=== PATIENT | female | born 1995 | race American Indian/Alaskan Native ===

== ENCOUNTER 2017-07-29 11:02 | Outpatient (CLI) | payer MEDICAID ==
[2017-07-29] MEDS ORDERED: LACTATED RINGERS 1,000 ML IV ONE (11:05)
[2017-07-29 11:29] LABS: Urine Drugs of Abuse Note Disclamer
[2017-07-29 11:42] LABS: Bacteria,Urine 1+ /HPF (Negative)
[2017-07-29 11:47] LABS: Bilirubin,Urine NEG (Negative); Blood,Urine MOD (Negative); Ketones,Urine NEG (Negative); Leukocyte Esterase,Urine LG (Negative); Mucus,Urine FEW /HPF; Nitrite,Urine NEG (Negative); Protein,Urine <15 mg/dL mg/dL (Negative); Urobilinogen,Urine < 2.0 mg/dL (<2.0)
[2017-07-29 12:21] VITALS: BP 121/75
== END 2017-07-29 12:40 | disposition home or self-care (01) ==
LOC: TRG 11:02
PROVIDERS: ATTEND Obstetrics & Gynecology
DX: O47.03 False labor before 37 completed weeks of gestation, third trimester (principal); Z3A.32 32 weeks gestation of pregnancy
CPT/HCPCS: 59025; 80307; 81001; 96360; J7120

== ENCOUNTER 2017-09-21 10:14 | Inpatient (IN) | payer MEDICAID ==
--- NOTE | 2017-09-21 10:38 | History and Physical Report ---
History of Present Illness Date of examination: 09/21/17 Chief complaint: Contractions @ 40w3d History of present illness: EDC Confirmation: 09/18/2017 Past History : 1 Past Medical History: Negative Past Medical History Past Surgical History: Negative Past Surgical History Family History Summary: Other family member - Has No Family History of Uterine Cancer - Entered On: 06/07 Other family member - Has No Family History of Stomach Cancer - Entered On: 06/07 Other family member - Has No Family History of Small Bowel Cancer - Entered On: 06/07/2017 Other family member - Has No Family History of Pancreatic Cancer - Entered On: Other family member - Has No Family History of Ovarvian Cancer - Entered On: Other family member - Has No Family History of Kidney/Urinary Tract Cancer - Entered On: 06/07/2017 Other family member - Has No Family History of DVT/PE on OCP - Entered On: 2016 Other family member - Has No Family History of Colon Cancer - Entered On: 2016 Other family member - Has No Family History of Breast Cancer - Entered On: 2016 Other family member - Has No Family History of Brain Cancer - Entered On: 2016 Other family member - Has No Family History of Biliary Tract Cancer - Entered On : 06/07/2017 Social History: Reviewed history and no changes required: Patient is single Smoking History: Patient is a former smoker. 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 Infection History Hx of STD: chlamydia Personal hx. of genital herpes: no Partner hx. of genital herpes: no Varicella/Chicken Pox Status: Unknown TB Risk: no Genetic History Congenital Heart Defect: Mom: no Dad: no Karla Disease: Mom: no Dad: no Thalassemia Mom: no Dad: no Neural Tube Defect Mom: no Dad: no Down's Syndrome Mom: no Dad: no Jose Alberto-Sachs Mom: no Dad: no Sickle Cell Disease/Trait Mom: no Dad: no Hemophilia Mom: no Dad: no Muscular Dystrophy Mom: no Dad: no Cystic Fibrosis Mom: no Dad: no [place] Chorea Mom: no Dad: no Mental Retardation Mom: no Dad: no Fragile X Mom: no Dad: no Other Genetic/Chromosomal Disorder Mom: no Dad: no Child w/other defect Mom: no Dad: no Enviromental Exposures Enviromental Exposures Reviewed Xray Exposure: no Medication, drug, or alcohol use since LMP: yes Chemical/Other Exposure: no Exposure to Cat Liter: no Hx of Parvovirus (Fifth Disease): no Occupational Exposure to Children: none Comments: tylenol Active Medications (reviewed today): ONDANSETRON 4 MG ORAL TBDP (ONDANSETRON) 1 tab po 1hrs prior to medication then q12 hrs as needed PLUS 27-1 MG TABS ( VIT-FE FUMARATE-FA) 1 po qd TYLENOL PRN () Current Allergies (reviewed today): * PCN (Critical) Past History Past Medical History: other (see HPI) Past Surgical History: other (see HPI) Family/Genetic History: other (see HPI) - Obstetrical History Expected Date of Delivery: 09/18/17 Actual Gestation: 40 Week(s) 3 Day(s) : 1 Para: 0 Hx # Term Pregnancies: 0 Spontaneous Abortions: 0 Induced : 0 Number of Living Children: 0 Medications and Allergies Allergies Allergy/AdvReac Type Severity Reaction Status Date / Time Penicillins Allergy Hives Verified 07/29/17 11:04 Review of Systems All systems: negative - Physical Exam Breasts: Positive: normal Cardiovascular: Regular rate Lungs: Positive: Clear to auscultation, Normal air movement Abdomen: Positive: normal appearance, soft Genitourinary (Female): Positive: normal external genitalia, normal perenium Vulva: both: normal Vagina: Positive: normal moisture Uterus: Positive: normal size, normal contour Anus/Rectum: Positive: normal perianal skin Extremities: Positive: normal Deep Tendon Reflex Grade: Normal +2 - Obstetrical Uterine Contraction Monitor Mode: External Results Result Diagrams: 09/21/17 10:45 All other labs normal. Current OB Labs Blood Type: B (04/09/2017) Rh Type: positive (04/09/2017) Hgb: 12.1 (04/09/2017) Hct: 35.5 (04/09/2017) Platelets: 182 (04/09/2017) Rubella: immune (04/09/2017) Hep B Surface Antigen: negative (04/09/2017) Urine Culture: yeast (04/09/2017) Optional Labs Sickle Cell: negative (04/09/2017) Tests: (8) Result ([id number]) ! Result 1 [A] BETAGB *8 Beta hemolytic Streptococcus, group B 08/16/17: Tests: (1) Chlamydia/GC Amplification ([id number]) Order Note: Clinical Information: SRC:UR Chlamydia trachomatis, MICHEL Negative Negative *1 Neisseria gonorrhoeae, MICHEL Negative Negative *2 Tests: (2) RPR, Rfx Qn RPR/Confirm TP ([id number]) RPR Non Reactive Non Reactive *3 Tests: (3) Panel [id number] ([id number]) HIV Screen 4th Generation wRfx Non Reactive Non Reactive *4 Assessment and Plan 21y/o G1po @ 40+3, admitted for active labor, GBS +. Admission orders in EMR. - Patient Problems (1) GBS (group B Streptococcus carrier), +RV culture, currently Current Visit: Yes Status: Acute Plan to address problem: allergy to pcn, will treat with cleocin Q8h until delivery (2) Active labor at term Current Visit: Yes Status: Acute (3) 40 weeks gestation of Current Visit: Yes Status: Acute
[2017-09-21] MEDS ORDERED: PITOCin/NS 20 UNIT/1000ML DRIP 20 UNITS/1,000 ML BAG IV SCH ×3 (11:00→23:16)
[2017-09-21] MEDS: LACTATED RINGERS 1,000 ML IV SCH ×4 (11:17→22:07)
[2017-09-21] MEDS: CLEOCIN 900 MG/50 mL 900 MG/50 ML BAG IV SCH ×2 (11:18→18:37)
[2017-09-21] MEDS ORDERED: ZOFRAN IV PRN ×2 (11:30→23:16)
[2017-09-21] MEDS ORDERED: SUBLIMAZE IV PRN (11:30)
[2017-09-21] MEDS ORDERED: ePHEDrine SULFATE IV PRN (11:30)
[2017-09-21] MEDS ORDERED: MINERAL OIL PO PRN (12:00)
[2017-09-21] MEDS ORDERED: XYLOCAINE 2% INFILTRATI ONE (12:00)
[2017-09-21] MEDS ORDERED: BRETHINE SUB-Q PRN (12:00)
[2017-09-21 12:07] LABS: Hemoglobin 13.4 gm/dl (10.1-14.3); Mean Corpuscular HGB Conc 33 % (30-34); Mean Corpuscular Hemoglobin 27 pg (28-32); Mean Corpuscular Volume 82 fl (79-97); Platelet Count 166 K/mm3 (140-440); Red Cell Distribution Width 15.1 % (13.2-15.2); White Blood Count 16.5 K/mm3 (4.5-11.0)
[2017-09-21] MEDS ORDERED: fentaNYL-BUPIV 2 MCG/ML-0.125% 200 MCG/100 ML BAG EPIDURAL ONE (12:10)
[2017-09-21] MEDS ORDERED: NARCAN 2 MG/2 ML IV PRN (13:26)
--- NOTE | 2017-09-21 13:26 | Anesthesia Consultation ---
Anesthesia Consult and Med Hx Date of service: 09/21/17 - Airway Anesthetic Teeth Evaluation: Good ROM Head & Neck: Adequate Mental/Hyoid Distance: Adequate Intubation Access Assessment: Probably Good - Pre-Operative Health Status ASA Pre-Surgery Classification: ASA2, Emergency Proposed Anesthetic Plan: Epidural, Spinal - Pulmonary Hx Asthma: No COPD: No Hx Pneumonia: No - Cardiovascular System Hx Hypertension: No - Central Nervous System Hx Seizures: No Hx Psychiatric Problems: No - Endocrine Hx Renal Disease: No Hx End Stage Renal Disease: No Hx Hypothyroidism: No Hx Hyperthyroidism: No - Hematic Hx Anemia: Yes Hx Sickle Cell Disease: No - Other Systems Hx Alcohol Use: No
--- NOTE | 2017-09-21 13:36 | Progress Note ---
Assessment and Plan patient comfortable with epidural, AROM - mec fluid. IUPC placed for more accurate monitoring of ctx intensity. Plan to start pit as needed. plan of care reviewed with patient, all questions addressed. - Patient Problems (1) Active labor at term Current Visit: Yes Status: Acute (2) 40 weeks gestation of Current Visit: Yes Status: Acute (3) History of GBS (group B streptococcus) UTI, currently Current Visit: Yes Status: Acute Subjective - Subjective Date of service: 09/21/17 Principal diagnosis: IUP @ 40+3, labor Interval history: EDC Confirmation: 09/18/2017 Past History : 1 Past Medical History: Negative Past Medical History Past Surgical History: Negative Past Surgical History Family History Summary: Other family member - Has No Family History of Uterine Cancer - Entered On: 06/07 Other family member - Has No Family History of Stomach Cancer - Entered On: 06/07 Other family member - Has No Family History of Small Bowel Cancer - Entered On: 06/07/2017 Other family member - Has No Family History of Pancreatic Cancer - Entered On: Other family member - Has No Family History of Ovarvian Cancer - Entered On: Other family member - Has No Family History of Kidney/Urinary Tract Cancer - Entered On: 06/07/2017 Other family member - Has No Family History of DVT/PE on OCP - Entered On: 2016 Other family member - Has No Family History of Colon Cancer - Entered On: 2016 Other family member - Has No Family History of Breast Cancer - Entered On: 2016 Other family member - Has No Family History of Brain Cancer - Entered On: 2016 Other family member - Has No Family History of Biliary Tract Cancer - Entered On : 06/07/2017 Social History: Reviewed history and no changes required: Patient is single Smoking History: Patient is a former smoker. 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 Infection History Hx of STD: chlamydia Personal hx. of genital herpes: no Partner hx. of genital herpes: no Varicella/Chicken Pox Status: Unknown TB Risk: no Genetic History Congenital Heart Defect: Mom: no Dad: no Karla Disease: Mom: no Dad: no Thalassemia Mom: no Dad: no Neural Tube Defect Mom: no Dad: no Down's Syndrome Mom: no Dad: no Jose Alberto-Sachs Mom: no Dad: no Sickle Cell Disease/Trait Mom: no Dad: no Hemophilia Mom: no Dad: no Muscular Dystrophy Mom: no Dad: no Cystic Fibrosis Mom: no Dad: no [place] Chorea Mom: no Dad: no Mental Retardation Mom: no Dad: no Fragile X Mom: no Dad: no Other Genetic/Chromosomal Disorder Mom: no Dad: no Child w/other defect Mom: no Dad: no Enviromental Exposures Enviromental Exposures Reviewed Xray Exposure: no Medication, drug, or alcohol use since LMP: yes Chemical/Other Exposure: no Exposure to Cat Liter: no Hx of Parvovirus (Fifth Disease): no Occupational Exposure to Children: none Comments: tylenol Active Medications (reviewed today): ONDANSETRON 4 MG ORAL TBDP (ONDANSETRON) 1 tab po 1hrs prior to medication then q12 hrs as needed PLUS 27-1 MG TABS ( VIT-FE FUMARATE-FA) 1 po qd TYLENOL PRN () Current Allergies (reviewed today): * PCN (Critical) Patient reports: no new complaints (comfortable with epidural) Objective - Vital Signs Vital Signs: Vital Signs - 12hr 09/21/17 09/21/17 09/21/17 11:18 11:24 12:38 Temperature 97.8 F Pulse Rate 79 102 H Respiratory 18 18 Rate Blood Pressure 105/65 Blood Pressure 129/79 [Left] O2 Sat by Pulse Oximetry 09/21/17 09/21/17 09/21/17 12:42 13:10 13:11 Temperature Pulse Rate 102 H 99 H 90 Respiratory Rate Blood Pressure 129/79 120/77 Blood Pressure [Left] O2 Sat by Pulse 99 Oximetry 09/21/17 09/21/17 09/21/17 13:13 13:15 13:17 Temperature Pulse Rate 94 H 86 91 H Respiratory Rate Blood Pressure 127/81 115/73 116/68 Blood Pressure [Left] O2 Sat by Pulse 99 Oximetry 09/21/17 09/21/17 09/21/17 13:19 13:20 13:21 Temperature Pulse Rate 88 89 64 Respiratory Rate Blood Pressure 126/76 119/73 Blood Pressure [Left] O2 Sat by Pulse 76 L Oximetry 09/21/17 09/21/17 09/21/17 13:23 13:25 13:27 Temperature Pulse Rate 76 76 68 Respiratory Rate Blood Pressure 110/66 103/63 105/66 Blood Pressure [Left] O2 Sat by Pulse 100 Oximetry 09/21/17 09/21/17 09/21/17 13:29 13:30 13:33 Temperature Pulse Rate 77 81 82 Respiratory Rate Blood Pressure 105/68 180/140 Blood Pressure [Left] O2 Sat by Pulse 97 Oximetry 09/21/17 13:35 Temperature Pulse Rate 82 Respiratory Rate Blood Pressure Blood Pressure [Left] O2 Sat by Pulse 100 Oximetry - Exam Breasts: normal Cardiovascular: Regular rate Lungs: Clear to auscultation, Normal air movement Abdomen: Present: normal appearance, soft Vulva: both: normal Uterus: Present: normal FHR: category 2 Uterine Contraction Monitor Mode: Internal Cervical Dilatation: 5.5 (AROM - mec, IUPC placed without difficulty) Cervical Effacement Percentage: 90 station: -1 Uterine Contraction Frequency (min): 5-7 Uterine Contraction Duration: 60 Uterine Contraction Pattern: Regular Uterine Tone Measurement Phase: Contraction Uterine Contraction Intensity: Mild Extremities: normal Deep Tendon Reflex Grade: Normal +2 - Labs Labs: Abnormal Labs 09/21/17 10:45 WBC 16.5 H MCH 27 L Laboratory Results - last 24 hr 09/21/17 09/21/17 09/21/17 10:45 10:45 10:45 WBC 16.5 H RBC 5.00 Hgb 13.4 Hct 41.0 MCV 82 MCH 27 L MCHC 33 RDW 15.1 Plt Count 166 RPR Nonreactive Blood Type B POSITIVE Antibody Screen Negative
[2017-09-21] MEDS ORDERED: PITOCin/NS 30 UNIT/500ML 30 UNITS/500 ML BAG IV SCH (14:00)
[2017-09-21] MEDS ORDERED: fentaNYL-BUPIV 2 MCG/ML-0.125% 200 MCG/100 ML BAG EPIDURAL SCH (14:00)
[2017-09-21 14:31] LABS: Urine Drugs of Abuse Note Disclamer
--- NOTE | 2017-09-21 16:46 | Progress Note ---
Assessment and Plan Patient remains comfortable with epidural. No change in SVE, although ctx have not been adequate d/t intolerance to labor. FHT currently CAT 2 with earlies and occasional variables unrelated to ctx. Discussed with patient concern that she has not made any cervical policy change clerk the last 4-5 hours could be a sign that the baby is too big to fit through her pelvis. Patient also feels warm on internal exam, oral temp 99.3. Patient states she would like one more hour to see if she makes change. Pitocin currently @ 4mU, rn to increase 4x4 q20 minutes while FHT tolerate. Patient and family verbalize understanding of plan. Will consult Dr. Noguera with patient's status. - Patient Problems (1) Active labor at term Current Visit: Yes Status: Acute (2) 40 weeks gestation of Current Visit: Yes Status: Acute (3) History of GBS (group B streptococcus) UTI, currently Current Visit: Yes Status: Acute Subjective - Subjective Date of service: 09/21/17 Principal diagnosis: IUP @ 40+3, labor Interval history: EDC Confirmation: 09/18/2017 Past History : 1 Past Medical History: Negative Past Medical History Past Surgical History: Negative Past Surgical History Family History Summary: Other family member - Has No Family History of Uterine Cancer - Entered On: 06/07 Other family member - Has No Family History of Stomach Cancer - Entered On: 06/07 Other family member - Has No Family History of Small Bowel Cancer - Entered On: 06/07/2017 Other family member - Has No Family History of Pancreatic Cancer - Entered On: Other family member - Has No Family History of Ovarvian Cancer - Entered On: Other family member - Has No Family History of Kidney/Urinary Tract Cancer - Entered On: 06/07/2017 Other family member - Has No Family History of DVT/PE on OCP - Entered On: 2016 Other family member - Has No Family History of Colon Cancer - Entered On: 2016 Other family member - Has No Family History of Breast Cancer - Entered On: 2016 Other family member - Has No Family History of Brain Cancer - Entered On: 2016 Other family member - Has No Family History of Biliary Tract Cancer - Entered On : 06/07/2017 Social History: Reviewed history and no changes required: Patient is single Smoking History: Patient is a former smoker. 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 Infection History Hx of STD: chlamydia Personal hx. of genital herpes: no Partner hx. of genital herpes: no Varicella/Chicken Pox Status: Unknown TB Risk: no Genetic History Congenital Heart Defect: Mom: no Dad: no Karla Disease: Mom: no Dad: no Thalassemia Mom: no Dad: no Neural Tube Defect Mom: no Dad: no Down's Syndrome Mom: no Dad: no Jose Alberto-Sachs Mom: no Dad: no Sickle Cell Disease/Trait Mom: no Dad: no Hemophilia Mom: no Dad: no Muscular Dystrophy Mom: no Dad: no Cystic Fibrosis Mom: no Dad: no Cesar Chorea Mom: no Dad: no Mental Retardation Mom: no Dad: no Fragile X Mom: no Dad: no Other Genetic/Chromosomal Disorder Mom: no Dad: no Child w/other defect Mom: no Dad: no Enviromental Exposures Enviromental Exposures Reviewed Xray Exposure: no Medication, drug, or alcohol use since LMP: yes Chemical/Other Exposure: no Exposure to Cat Liter: no Hx of Parvovirus (Fifth Disease): no Occupational Exposure to Children: none Comments: tylenol Active Medications (reviewed today): ONDANSETRON 4 MG ORAL TBDP (ONDANSETRON) 1 tab po 1hrs prior to medication then q12 hrs as needed PLUS 27-1 MG TABS ( VIT-FE FUMARATE-FA) 1 po qd TYLENOL PRN () Current Allergies (reviewed today): * PCN (Critical) Patient reports: no new complaints (comfortable with epidural) Objective - Vital Signs Vital Signs: Vital Signs - 12hr 09/21/17 09/21/17 09/21/17 11:18 11:24 12:38 Temperature 97.8 F Pulse Rate 79 102 H Respiratory 18 18 Rate Blood Pressure 105/65 Blood Pressure 129/79 [Left] O2 Sat by Pulse Oximetry 09/21/17 09/21/17 09/21/17 12:42 13:10 13:11 Temperature Pulse Rate 102 H 99 H 90 Respiratory Rate Blood Pressure 129/79 120/77 Blood Pressure [Left] O2 Sat by Pulse 99 Oximetry 1209/21/17 09/21/17 13:13 13:15 13:17 Temperature Pulse Rate 94 H 86 91 H Respiratory Rate Blood Pressure 127/81 115/73 116/68 Blood Pressure [Left] O2 Sat by Pulse 99 Oximetry 09/21/17 09/21/17 09/21/17 13:19 13:20 13:21 Temperature Pulse Rate 88 89 64 Respiratory Rate Blood Pressure 126/76 119/73 Blood Pressure [Left] O2 Sat by Pulse 76 L Oximetry 09/21/17 09/21/17 09/21/17 13:23 13:25 13:27 Temperature Pulse Rate 76 76 68 Respiratory Rate Blood Pressure 110/66 103/63 105/66 Blood Pressure [Left] O2 Sat by Pulse 100 Oximetry 09/21/17 09/21/17 09/21/17 13:29 13:30 13:33 Temperature Pulse Rate 77 81 82 Respiratory Rate Blood Pressure 105/68 180/140 Blood Pressure [Left] O2 Sat by Pulse 97 Oximetry 09/21/17 09/21/17 09/21/17 13:35 13:36 13:40 Temperature Pulse Rate 82 146 H 86 Respiratory Rate Blood Pressure 195/164 99/53 Blood Pressure [Left] O2 Sat by Pulse 100 100 Oximetry 09/21/17 09/21/17 09/21/17 13:41 13:43 13:45 Temperature Pulse Rate 78 89 82 Respiratory Rate Blood Pressure 100/56 104/57 99/54 Blood Pressure [Left] O2 Sat by Pulse 100 Oximetry 09/21/17 09/21/17 09/21/17 13:47 13:50 13:55 Temperature Pulse Rate 93 H 85 84 Respiratory Rate Blood Pressure 99/66 Blood Pressure [Left] O2 Sat by Pulse 100 100 Oximetry 09/21/17 09/21/17 09/21/17 14:00 14:04 14:05 Temperature Pulse Rate 85 82 93 H Respiratory Rate Blood Pressure 100/58 Blood Pressure [Left] O2 Sat by Pulse 100 100 Oximetry 09/21/17 09/21/17 09/21/17 14:10 14:15 14:19 Temperature Pulse Rate 89 89 85 Respiratory Rate Blood Pressure 109/62 Blood Pressure [Left] O2 Sat by Pulse 87 98 Oximetry 09/21/17 09/21/17 09/21/17 14:20 14:25 14:30 Temperature Pulse Rate 88 89 85 Respiratory Rate Blood Pressure Blood Pressure [Left] O2 Sat by Pulse 100 100 99 Oximetry 09/21/17 09/21/17 09/21/17 14:33 14:35 14:40 Temperature Pulse Rate 87 81 90 Respiratory Rate Blood Pressure 102/60 Blood Pressure [Left] O2 Sat by Pulse 99 99 Oximetry 09/21/17 09/21/17 09/21/17 14:45 14:48 14:50 Temperature Pulse Rate 83 90 102 H Respiratory Rate Blood Pressure 104/57 Blood Pressure [Left] O2 Sat by Pulse 99 99 Oximetry 09/21/17 09/21/17 09/21/17 14:55 15:00 15:03 Temperature Pulse Rate 81 76 75 Respiratory Rate Blood Pressure 105/73 Blood Pressure [Left] O2 Sat by Pulse 100 100 Oximetry 09/21/17 09/21/17 09/21/17 15:05 15:10 15:15 Temperature Pulse Rate 73 73 70 Respiratory Rate Blood Pressure Blood Pressure [Left] O2 Sat by Pulse 100 100 100 Oximetry 09/21/17 09/21/17 09/21/17 15:18 15:20 15:25 Temperature Pulse Rate 72 74 93 H Respiratory Rate Blood Pressure 115/75 Blood Pressure [Left] O2 Sat by Pulse 100 100 Oximetry 09/21/17 09/21/17 09/21/17 15:30 15:32 15:35 Temperature 99.3 F Pulse Rate 72 78 91 H Respiratory Rate Blood Pressure 118/75 Blood Pressure [Left] O2 Sat by Pulse 100 100 Oximetry 09/21/17 09/21/17 09/21/17 15:40 15:45 15:48 Temperature Pulse Rate 88 81 74 Respiratory Rate Blood Pressure 109/66 Blood Pressure [Left] O2 Sat by Pulse 100 100 Oximetry 09/21/17 09/21/17 09/21/17 15:50 15:55 16:00 Temperature Pulse Rate 77 79 78 Respiratory Rate Blood Pressure Blood Pressure [Left] O2 Sat by Pulse 100 100 100 Oximetry 09/21/17 09/21/17 09/21/17 16:04 16:05 16:10 Temperature Pulse Rate 80 79 68 Respiratory Rate Blood Pressure 117/73 Blood Pressure [Left] O2 Sat by Pulse 100 100 Oximetry 09/21/17 09/21/17 09/21/17 16:15 16:18 16:20 Temperature Pulse Rate 74 70 79 Respiratory Rate Blood Pressure 116/74 Blood Pressure [Left] O2 Sat by Pulse 100 100 Oximetry 09/21/17 09/21/17 09/21/17 16:25 16:30 16:33 Temperature Pulse Rate 86 78 75 Respiratory Rate Blood Pressure 120/73 Blood Pressure [Left] O2 Sat by Pulse 100 100 Oximetry 09/21/17 09/21/17 16:35 16:40 Temperature Pulse Rate 84 76 Respiratory Rate Blood Pressure Blood Pressure [Left] O2 Sat by Pulse 100 100 Oximetry - Exam Breasts: normal Cardiovascular: Regular rate Lungs: Clear to auscultation, Normal air movement Abdomen: Present: normal appearance, soft Vulva: both: normal Uterus: Present: normal FHR: category 2 Uterine Contraction Monitor Mode: Internal Cervical Dilatation: 5.5 Cervical Effacement Percentage: 90 station: -1 Uterine Contraction Frequency (min): 2-3 Uterine Contraction Duration: 60 Uterine Contraction Pattern: Regular Uterine Tone Measurement Phase: Contraction Uterine Contraction Intensity: Moderate Extremities: normal Deep Tendon Reflex Grade: Normal +2 - Labs Labs: Abnormal Labs 09/21/17 10:45 WBC 16.5 H MCH 27 L Laboratory Results - last 24 hr 09/21/17 09/21/17 09/21/17 10:45 10:45 10:45 WBC 16.5 H RBC 5.00 Hgb 13.4 Hct 41.0 MCV 82 MCH 27 L MCHC 33 RDW 15.1 Plt Count 166 Urine Opiates Screen Urine Methadone Screen Ur Barbiturates Screen Ur Phencyclidine Scrn Ur Amphetamines Screen U Benzodiazepines Scrn Urine Cocaine Screen U Marijuana (THC) Screen Drugs of Abuse Note RPR Nonreactive Blood Type B POSITIVE Antibody Screen Negative 09/21/17 14:12 WBC RBC Hgb Hct MCV MCH MCHC RDW Plt Count Urine Opiates Screen Presumptive negative Urine Methadone Screen Presumptive negative Ur Barbiturates Screen Presumptive negative Ur Phencyclidine Scrn Presumptive negative Ur Amphetamines Screen Presumptive negative U Benzodiazepines Scrn Presumptive negative Urine Cocaine Screen Presumptive negative U Marijuana (THC) Screen Presumptive positive Drugs of Abuse Note Disclamer RPR Blood Type Antibody Screen
--- NOTE | 2017-09-21 17:30 | Progress Note ---
Assessment and Plan - Patient Problems (1) 40 weeks gestation of Current Visit: Yes Status: Acute Plan to address problem: No cervical change for ~3hrs. FHT's cat 1. Risk for infection and deterioration of status discussed. Options reviewed, questions answered, she desires to continue LETI with pitocin at this time. (2) History of GBS (group B streptococcus) UTI, currently Current Visit: Yes Status: Acute Subjective - Subjective Date of service: 09/21/17 Principal diagnosis: IUP @ 40+3, labor Patient reports: no new complaints (comfortable with epidural) Objective - Vital Signs Vital Signs: Vital Signs - 12hr 09/21/17 09/21/17 09/21/17 11:18 11:24 12:38 Temperature 97.8 F Pulse Rate 79 102 H Respiratory 18 18 Rate Blood Pressure 105/65 Blood Pressure 129/79 [Left] O2 Sat by Pulse Oximetry 09/21/17 09/21/17 09/21/17 12:42 13:10 13:11 Temperature Pulse Rate 102 H 99 H 90 Respiratory Rate Blood Pressure 129/79 120/77 Blood Pressure [Left] O2 Sat by Pulse 99 Oximetry 09/21/17 09/21/17 09/21/17 13:13 13:15 13:17 Temperature Pulse Rate 94 H 86 91 H Respiratory Rate Blood Pressure 127/81 115/73 116/68 Blood Pressure [Left] O2 Sat by Pulse 99 Oximetry 09/21/17 09/21/17 09/21/17 13:19 13:20 13:21 Temperature Pulse Rate 88 89 64 Respiratory Rate Blood Pressure 126/76 119/73 Blood Pressure [Left] O2 Sat by Pulse 76 L Oximetry 09/21/17 09/21/17 09/21/17 13:23 13:25 13:27 Temperature Pulse Rate 76 76 68 Respiratory Rate Blood Pressure 110/66 103/63 105/66 Blood Pressure [Left] O2 Sat by Pulse 100 Oximetry 09/21/17 09/21/17 09/21/17 13:29 13:30 13:33 Temperature Pulse Rate 77 81 82 Respiratory Rate Blood Pressure 105/68 180/140 Blood Pressure [Left] O2 Sat by Pulse 97 Oximetry 09/21/17 09/21/17 09/21/17 13:35 13:36 13:40 Temperature Pulse Rate 82 146 H 86 Respiratory Rate Blood Pressure 195/164 99/53 Blood Pressure [Left] O2 Sat by Pulse 100 100 Oximetry 09/21/17 09/21/17 09/21/17 13:41 13:43 13:45 Temperature Pulse Rate 78 89 82 Respiratory Rate Blood Pressure 100/56 104/57 99/54 Blood Pressure [Left] O2 Sat by Pulse 100 Oximetry 09/21/17 09/21/17 09/21/17 13:47 13:50 13:55 Temperature Pulse Rate 93 H 85 84 Respiratory Rate Blood Pressure 99/66 Blood Pressure [Left] O2 Sat by Pulse 100 100 Oximetry 09/21/17 09/21/17 09/21/17 14:00 14:04 14:05 Temperature Pulse Rate 85 82 93 H Respiratory Rate Blood Pressure 100/58 Blood Pressure [Left] O2 Sat by Pulse 100 100 Oximetry 09/21/17 09/21/17 09/21/17 14:10 14:15 14:19 Temperature Pulse Rate 89 89 85 Respiratory Rate Blood Pressure 109/62 Blood Pressure [Left] O2 Sat by Pulse 87 98 Oximetry 09/21/17 09/21/17 09/21/17 14:20 14:25 14:30 Temperature Pulse Rate 88 89 85 Respiratory Rate Blood Pressure Blood Pressure [Left] O2 Sat by Pulse 100 100 99 Oximetry 09/21/17 09/21/17 09/21/17 14:33 14:35 14:40 Temperature Pulse Rate 87 81 90 Respiratory Rate Blood Pressure 102/60 Blood Pressure [Left] O2 Sat by Pulse 99 99 Oximetry 09/21/17 09/21/17 09/21/17 14:45 14:48 14:50 Temperature Pulse Rate 83 90 102 H Respiratory Rate Blood Pressure 104/57 Blood Pressure [Left] O2 Sat by Pulse 99 99 Oximetry 09/21/17 09/21/17 09/21/17 14:55 15:00 15:03 Temperature Pulse Rate 81 76 75 Respiratory Rate Blood Pressure 105/73 Blood Pressure [Left] O2 Sat by Pulse 100 100 Oximetry 09/21/17 09/21/17 09/21/17 15:05 15:10 15:15 Temperature Pulse Rate 73 73 70 Respiratory Rate Blood Pressure Blood Pressure [Left] O2 Sat by Pulse 100 100 100 Oximetry 09/21/17 09/21/17 09/21/17 15:18 15:20 15:25 Temperature Pulse Rate 72 74 93 H Respiratory Rate Blood Pressure 115/75 Blood Pressure [Left] O2 Sat by Pulse 100 100 Oximetry 09/21/17 09/21/17 09/21/17 15:30 15:32 15:35 Temperature 99.3 F Pulse Rate 72 78 91 H Respiratory Rate Blood Pressure 118/75 Blood Pressure [Left] O2 Sat by Pulse 100 100 Oximetry 09/21/17 09/21/17 09/21/17 15:40 15:45 15:48 Temperature Pulse Rate 88 81 74 Respiratory Rate Blood Pressure 109/66 Blood Pressure [Left] O2 Sat by Pulse 100 100 Oximetry 09/21/17 09/21/17 09/21/17 15:50 15:55 16:00 Temperature Pulse Rate 77 79 78 Respiratory Rate Blood Pressure Blood Pressure [Left] O2 Sat by Pulse 100 100 100 Oximetry 09/21/17 09/21/17 09/21/17 16:04 16:05 16:10 Temperature Pulse Rate 80 79 68 Respiratory Rate Blood Pressure 117/73 Blood Pressure [Left] O2 Sat by Pulse 100 100 Oximetry 09/21/17 09/21/17 09/21/17 16:15 16:18 16:20 Temperature Pulse Rate 74 70 79 Respiratory Rate Blood Pressure 116/74 Blood Pressure [Left] O2 Sat by Pulse 100 100 Oximetry 09/21/17 09/21/17 09/21/17 16:25 16:30 16:33 Temperature Pulse Rate 86 78 75 Respiratory Rate Blood Pressure 120/73 Blood Pressure [Left] O2 Sat by Pulse 100 100 Oximetry 09/21/17 09/21/17 09/21/17 16:35 16:40 16:45 Temperature Pulse Rate 84 76 81 Respiratory Rate Blood Pressure Blood Pressure [Left] O2 Sat by Pulse 100 100 100 Oximetry 09/21/17 09/21/17 09/21/17 16:47 16:50 16:55 Temperature Pulse Rate 82 80 75 Respiratory Rate Blood Pressure 114/73 Blood Pressure [Left] O2 Sat by Pulse 100 100 Oximetry 09/21/17 09/21/17 09/21/17 17:00 17:03 17:05 Temperature Pulse Rate 75 77 70 Respiratory Rate Blood Pressure 121/69 Blood Pressure [Left] O2 Sat by Pulse 100 100 Oximetry 09/21/17 09/21/17 09/21/17 17:10 17:15 17:18 Temperature Pulse Rate 71 73 72 Respiratory Rate Blood Pressure 121/74 Blood Pressure [Left] O2 Sat by Pulse 100 100 Oximetry 09/21/17 09/21/17 09/21/17 17:20 17:25 17:30 Temperature Pulse Rate 71 73 72 Respiratory Rate Blood Pressure Blood Pressure [Left] O2 Sat by Pulse 100 100 100 Oximetry - Labs Labs: Abnormal Labs 09/21/17 10:45 WBC 16.5 H MCH 27 L Laboratory Results - last 24 hr 09/21/17 09/21/17 09/21/17 10:45 10:45 10:45 WBC 16.5 H RBC 5.00 Hgb 13.4 Hct 41.0 MCV 82 MCH 27 L MCHC 33 RDW 15.1 Plt Count 166 Urine Opiates Screen Urine Methadone Screen Ur Barbiturates Screen Ur Phencyclidine Scrn Ur Amphetamines Screen U Benzodiazepines Scrn Urine Cocaine Screen U Marijuana (THC) Screen Drugs of Abuse Note RPR Nonreactive Blood Type B POSITIVE Antibody Screen Negative 09/21/17 14:12 WBC RBC Hgb Hct MCV MCH MCHC RDW Plt Count Urine Opiates Screen Presumptive negative Urine Methadone Screen Presumptive negative Ur Barbiturates Screen Presumptive negative Ur Phencyclidine Scrn Presumptive negative Ur Amphetamines Screen Presumptive negative U Benzodiazepines Scrn Presumptive negative Urine Cocaine Screen Presumptive negative U Marijuana (THC) Screen Presumptive positive Drugs of Abuse Note Disclamer RPR Blood Type Antibody Screen
[2017-09-21] MEDS ORDERED: PEPCID IV SCH (19:36)
[2017-09-21] MEDS ORDERED: METHERGINE IM ONE (19:36)
[2017-09-21] MEDS ORDERED: REGLAN IV SCH (19:36)
[2017-09-21] MEDS ORDERED: GARAMYCIN 80 MG in NACL 0.9% 100 ML IV SCH (19:45)
--- NOTE | 2017-09-21 19:47 | Progress Note ---
Assessment and Plan - Patient Problems (1) 40 weeks gestation of Current Visit: Yes Status: Acute (2) History of GBS (group B streptococcus) UTI, currently Current Visit: Yes Status: Acute (3) Failure of cervical dilation Current Visit: Yes Status: Acute Subjective - Subjective Date of service: 09/21/17 Principal diagnosis: IUP @ 40+3, labor Interval history: No cervical change with adequate contractions. Risk with c/s discussed: bleeding , infection, injury to bowel and bladder and possible c/s with subsequent pregnancies. Questions answered, she voiced understanding and desires to proceed with c/s. Consents reviewed and signed Patient reports: no new complaints (comfortable with epidural) Objective - Vital Signs Vital Signs: Vital Signs - 12hr 09/21/17 09/21/17 09/21/17 11:18 11:24 12:38 Temperature 97.8 F Pulse Rate 79 102 H Respiratory 18 18 Rate Blood Pressure 105/65 Blood Pressure 129/79 [Left] O2 Sat by Pulse Oximetry 09/21/17 09/21/17 09/21/17 12:42 13:10 13:11 Temperature Pulse Rate 102 H 99 H 90 Respiratory Rate Blood Pressure 129/79 120/77 Blood Pressure [Left] O2 Sat by Pulse 99 Oximetry 09/21/17 09/21/17 09/21/17 13:13 13:15 13:17 Temperature Pulse Rate 94 H 86 91 H Respiratory Rate Blood Pressure 127/81 115/73 116/68 Blood Pressure [Left] O2 Sat by Pulse 99 Oximetry 09/21/17 09/21/17 09/21/17 13:19 13:20 13:21 Temperature Pulse Rate 88 89 64 Respiratory Rate Blood Pressure 126/76 119/73 Blood Pressure [Left] O2 Sat by Pulse 76 L Oximetry 09/21/17 09/21/17 09/21/17 13:23 13:25 13:27 Temperature Pulse Rate 76 76 68 Respiratory Rate Blood Pressure 110/66 103/63 105/66 Blood Pressure [Left] O2 Sat by Pulse 100 Oximetry 09/21/17 09/21/17 09/21/17 13:29 13:30 13:33 Temperature Pulse Rate 77 81 82 Respiratory Rate Blood Pressure 105/68 180/140 Blood Pressure [Left] O2 Sat by Pulse 97 Oximetry 09/21/17 09/21/17 09/21/17 13:35 13:36 13:40 Temperature Pulse Rate 82 146 H 86 Respiratory Rate Blood Pressure 195/164 99/53 Blood Pressure [Left] O2 Sat by Pulse 100 100 Oximetry 09/21/17 09/21/17 09/21/17 13:41 13:43 13:45 Temperature Pulse Rate 78 89 82 Respiratory Rate Blood Pressure 100/56 104/57 99/54 Blood Pressure [Left] O2 Sat by Pulse 100 Oximetry 09/21/17 09/21/17 09/21/17 13:47 13:50 13:55 Temperature Pulse Rate 93 H 85 84 Respiratory Rate Blood Pressure 99/66 Blood Pressure [Left] O2 Sat by Pulse 100 100 Oximetry 09/21/17 09/21/17 09/21/17 14:00 14:04 14:05 Temperature Pulse Rate 85 82 93 H Respiratory Rate Blood Pressure 100/58 Blood Pressure [Left] O2 Sat by Pulse 100 100 Oximetry 09/21/17 09/21/17 09/21/17 14:10 14:15 14:19 Temperature Pulse Rate 89 89 85 Respiratory Rate Blood Pressure 109/62 Blood Pressure [Left] O2 Sat by Pulse 87 98 Oximetry 09/21/17 09/21/17 09/21/17 14:20 14:25 14:30 Temperature Pulse Rate 88 89 85 Respiratory Rate Blood Pressure Blood Pressure [Left] O2 Sat by Pulse 100 100 99 Oximetry 09/21/17 09/21/17 09/21/17 14:33 14:35 14:40 Temperature Pulse Rate 87 81 90 Respiratory Rate Blood Pressure 102/60 Blood Pressure [Left] O2 Sat by Pulse 99 99 Oximetry 09/21/17 09/21/17 09/21/17 14:45 14:48 14:50 Temperature Pulse Rate 83 90 102 H Respiratory Rate Blood Pressure 104/57 Blood Pressure [Left] O2 Sat by Pulse 99 99 Oximetry 09/21/17 09/21/17 09/21/17 14:55 15:00 15:03 Temperature Pulse Rate 81 76 75 Respiratory Rate Blood Pressure 105/73 Blood Pressure [Left] O2 Sat by Pulse 100 100 Oximetry 09/21/17 09/21/17 09/21/17 15:05 15:10 15:15 Temperature Pulse Rate 73 73 70 Respiratory Rate Blood Pressure Blood Pressure [Left] O2 Sat by Pulse 100 100 100 Oximetry 09/21/17 09/21/1717 15:18 15:20 15:25 Temperature Pulse Rate 72 74 93 H Respiratory Rate Blood Pressure 115/75 Blood Pressure [Left] O2 Sat by Pulse 100 100 Oximetry 09/21/17 09/21/17 09/21/17 15:30 15:32 15:35 Temperature 99.3 F Pulse Rate 72 78 91 H Respiratory Rate Blood Pressure 118/75 Blood Pressure [Left] O2 Sat by Pulse 100 100 Oximetry 09/21/17 09/21/17 09/21/17 15:40 15:45 15:48 Temperature Pulse Rate 88 81 74 Respiratory Rate Blood Pressure 109/66 Blood Pressure [Left] O2 Sat by Pulse 100 100 Oximetry 09/21/17 09/21/17 09/21/17 15:50 15:55 16:00 Temperature Pulse Rate 77 79 78 Respiratory Rate Blood Pressure Blood Pressure [Left] O2 Sat by Pulse 100 100 100 Oximetry 09/21/17 09/21/17 09/21/17 16:04 16:05 16:10 Temperature Pulse Rate 80 79 68 Respiratory Rate Blood Pressure 117/73 Blood Pressure [Left] O2 Sat by Pulse 100 100 Oximetry 09/21/17 09/21/17 09/21/17 16:15 16:18 16:20 Temperature Pulse Rate 74 70 79 Respiratory Rate Blood Pressure 116/74 Blood Pressure [Left] O2 Sat by Pulse 100 100 Oximetry 09/21/17 09/21/17 09/21/17 16:25 16:30 16:33 Temperature Pulse Rate 86 78 75 Respiratory Rate Blood Pressure 120/73 Blood Pressure [Left] O2 Sat by Pulse 100 100 Oximetry 09/21/17 09/21/17 09/21/17 16:35 16:40 16:45 Temperature Pulse Rate 84 76 81 Respiratory Rate Blood Pressure Blood Pressure [Left] O2 Sat by Pulse 100 100 100 Oximetry 09/21/17 09/21/17 09/21/17 16:47 16:50 16:55 Temperature Pulse Rate 82 80 75 Respiratory Rate Blood Pressure 114/73 Blood Pressure [Left] O2 Sat by Pulse 100 100 Oximetry 09/21/17 09/21/17 09/21/17 17:00 17:03 17:05 Temperature Pulse Rate 75 77 70 Respiratory Rate Blood Pressure 121/69 Blood Pressure [Left] O2 Sat by Pulse 100 100 Oximetry 12/03/0309/21/17 09/21/17 17:10 17:15 17:18 Temperature Pulse Rate 71 73 72 Respiratory Rate Blood Pressure 121/74 Blood Pressure [Left] O2 Sat by Pulse 100 100 Oximetry 09/21/17 09/21/17 09/21/17 17:20 17:25 17:30 Temperature 99.5 F Pulse Rate 71 73 72 Respiratory Rate Blood Pressure Blood Pressure [Left] O2 Sat by Pulse 100 100 100 Oximetry 09/21/17 09/21/17 09/21/17 17:32 17:35 17:40 Temperature Pulse Rate 75 81 71 Respiratory Rate Blood Pressure 114/67 Blood Pressure [Left] O2 Sat by Pulse 100 100 Oximetry 09/21/17 09/21/17 09/21/17 17:45 17:49 17:50 Temperature Pulse Rate 70 68 78 Respiratory Rate Blood Pressure 119/66 Blood Pressure [Left] O2 Sat by Pulse 100 100 Oximetry 09/21/17 09/21/17 09/21/17 17:55 18:00 18:02 Temperature Pulse Rate 69 83 74 Respiratory Rate Blood Pressure 115/65 Blood Pressure [Left] O2 Sat by Pulse 100 100 Oximetry 09/21/17 09/21/17 09/21/17 18:05 18:10 18:15 Temperature Pulse Rate 76 69 72 Respiratory Rate Blood Pressure Blood Pressure [Left] O2 Sat by Pulse 100 100 100 Oximetry 09/21/17 09/21/17 09/21/17 18:18 18:20 18:25 Temperature Pulse Rate 80 73 77 Respiratory Rate Blood Pressure 106/72 Blood Pressure [Left] O2 Sat by Pulse 100 100 Oximetry 09/21/17 09/21/17 09/21/17 18:30 18:33 18:35 Temperature Pulse Rate 70 86 82 Respiratory Rate Blood Pressure 103/60 Blood Pressure [Left] O2 Sat by Pulse 100 99 Oximetry 09/21/17 09/21/17 09/21/17 18:40 18:45 18:47 Temperature Pulse Rate 79 83 91 H Respiratory Rate Blood Pressure 97/57 Blood Pressure [Left] O2 Sat by Pulse 100 100 Oximetry 09/21/17 09/21/17 09/21/17 18:50 18:55 19:00 Temperature Pulse Rate 77 87 86 Respiratory Rate Blood Pressure Blood Pressure [Left] O2 Sat by Pulse 100 100 100 Oximetry 09/21/17 09/21/1709/21/17 19:03 19:04 19:05 Temperature 98.9 F Pulse Rate 103 H 93 H 104 H Respiratory 18 Rate Blood Pressure 114/61 Blood Pressure 107/67 [Left] O2 Sat by Pulse 100 99 Oximetry 09/21/17 09/21/17 09/21/17 19:10 19:15 19:18 Temperature Pulse Rate 86 97 H 93 H Respiratory Rate Blood Pressure 107/67 Blood Pressure [Left] O2 Sat by Pulse 100 100 Oximetry 09/21/17 09/21/17 09/21/17 19:20 19:25 19:30 Temperature Pulse Rate 88 103 H 97 H Respiratory Rate Blood Pressure Blood Pressure [Left] O2 Sat by Pulse 100 100 100 Oximetry 09/21/17 09/21/17 09/21/17 19:35 19:40 19:45 Temperature Pulse Rate 88 110 H 109 H Respiratory Rate Blood Pressure Blood Pressure [Left] O2 Sat by Pulse 100 100 100 Oximetry - Labs Labs: Abnormal Labs 09/21/17 10:45 WBC 16.5 H MCH 27 L Laboratory Results - last 24 hr 09/21/17 09/21/17 09/21/17 10:45 10:45 10:45 WBC 16.5 H RBC 5.00 Hgb 13.4 Hct 41.0 MCV 82 MCH 27 L MCHC 33 RDW 15.1 Plt Count 166 Urine Opiates Screen Urine Methadone Screen Ur Barbiturates Screen Ur Phencyclidine Scrn Ur Amphetamines Screen U Benzodiazepines Scrn Urine Cocaine Screen U Marijuana (THC) Screen Drugs of Abuse Note RPR Nonreactive Blood Type B POSITIVE Antibody Screen Negative 09/21/17 14:12 WBC RBC Hgb Hct MCV MCH MCHC RDW Plt Count Urine Opiates Screen Presumptive negative Urine Methadone Screen Presumptive negative Ur Barbiturates Screen Presumptive negative Ur Phencyclidine Scrn Presumptive negative Ur Amphetamines Screen Presumptive negative U Benzodiazepines Scrn Presumptive negative Urine Cocaine Screen Presumptive negative U Marijuana (THC) Screen Presumptive positive Drugs of Abuse Note Disclamer RPR Blood Type Antibody Screen
[2017-09-21] MEDS ORDERED: REGLAN ONE (19:48)
[2017-09-21] MEDS ORDERED: BICITRA PO ONE (20:00)
[2017-09-21] MEDS ORDERED: LACTATED RINGERS 1,000 ML IV SCH (20:00)
[2017-09-21] MEDS ORDERED: CYTOTEC PR ONE (20:00)
[2017-09-21] MEDS ORDERED: HEMABATE IM ONE (20:00)
[2017-09-21] MEDS ORDERED: GARAMYCIN/NS 80 MG/100 ML 100 ML IV SCH (20:00)
[2017-09-21] MEDS ORDERED: XYLOCAINE MPF 2% ONE ×3 (20:14→21:21)
[2017-09-21] MEDS ORDERED: WATER FOR IRRIG STERILE IR ONE (20:15)
[2017-09-21] MEDS ORDERED: NACL 0.9% IR ONE (20:15)
[2017-09-21] MEDS ORDERED: ZOFRAN ONE (20:27)
[2017-09-21] MEDS ORDERED: VERSED ONE (20:33)
[2017-09-21] MEDS ORDERED: MORPHINE ONE (20:59)
[2017-09-21] MEDS ORDERED: DEMEROL ONE (21:12)
[2017-09-21] MEDS ORDERED: NARCAN 0.4 MG/1 ML IV PRN ×2 (21:31→23:16)
--- NOTE | 2017-09-21 21:31 | Post Anesthesia Evaluation ---
- Post Anesthesia Evaluation Patient Participated: Yes Airway Patent: Yes Stable Respiratory Function: Yes Nausea/Vomiting: No Temp > 96.8F: Yes Pain Manageable: Yes Adequeate Hydration: Yes Anesthesia Complications: No Block Receding Appropriately: Yes Patient on Ventilator: No
--- NOTE | 2017-09-21 21:31 | Anesthesia Day of Surgery ---
Anesthesia Day of Surgery - Day of Surgery Patient Examined: Yes Patient H&P Reviewed: Yes Patient is NPO: Yes
[2017-09-21] MEDS ORDERED: MORPHINE IV PRN ×4 (21:32→23:16)
[2017-09-21] MEDS ORDERED: TORADOL IV PRN ×2 (21:33→23:16)
--- NOTE | 2017-09-21 21:34 | Operative Report ---
Operative Report Operative Report: Date: 09/21/2017 Preoperative diagnosis: 1. Intrauterine at 40 weeks 2. Failure to dilate 3. Group beta Streptococcus carrier Postoperative diagnosis: 1. Intrauterine at 40 weeks 2. Failure to dilate 3. Group beta Streptococcus carrier Procedure: Low uterine transverse incision for delivery Surgeon: Gayle Noguera MD Lumber Material Handler: Anesthesia: Epidural Anesthesiologist: Jennie Collins M.D. Estimated blood loss: 600 mL Urine out: 50 mL Findings: Live born male infant. Weight 5 lbs. 14 oz. Apgars 8 at 1 minute and 9 at 5 minutes. Grossly normal uterus, tubes and ovaries. Tubal paratubal cysts bilaterally Procedure: After risk, benefits, complications, consequences and alternatives for this procedure were discussed with patient and consents were reviewed and signed, she was taken to the OR where epidural anesthesia was bolused. She was then placed in the left lateral tilt position, and prepped and draped in the usual sterile fashion. Timeout was performed, and an appropriate level of anesthesia was noted, a Pfannenstiel incision was made and extended to the fascia which was incised and extended in the lateral directions. The overlying fascia was sharply dissected away from the underlying rectus muscles in the superior and inferior directions. The midline was entered bluntly. The vesicouterine fold was incised and with blunt dissection the bladder flap was created. A transverse incision was made in the lower uterine segment and extended in superiolateral direction with finger fractionation. Thick meconium fluid was noted. The infant was delivered from cephalic position. Mouth and nose were bulb suctioned. Spontaneous cry and excellent tone were noted. Cord was doubly clamped and cut. The infant was given to /resuscitation team present. The placenta was manually extracted. The uterus was then exteriorized and cleared of any further products of conception or placental tissue. The incision was reapproximated using 0 Vicryl in a running interlocking stitch. The incision was reinforced with suture of 0 Vicryl in imbricating fashion. Once hemostasis was noted, the uterus was allowed back into the pelvic cavity. The pelvis was irrigated with warm normal saline. Again hemostasis was noted . Surgicel applied for further hemostasis. Interceed was then placed to prevent adhesions. Then attention was turned to the rectus muscles. The rectus muscles were reapproximated using 0 Vicryl in an interrupted's single simple fashion 2 . Once hemostasis was noted, the fascia was reapproximated using 0 Vicryl and some running stitch. Once hemostasis was noted skin incision was reapproximated using 4-0 Vicryl on a Alexis needle in a subcuticular manner. Counts were correct 3. Patient tolerated procedure well state recovery room in stable condition.
--- NOTE | 2017-09-21 21:40 | Event Note ---
Date: 09/21/17 Motrin and EMLA cream were electronically prescribed to Niyah Mayberry
[2017-09-21] MEDS ORDERED: D5LR 1,000 ML IV SCH (23:16)
[2017-09-21] MEDS ORDERED: LANSINOH TP PRN (23:16)
[2017-09-21] MEDS ORDERED: SENOKOT PO PRN (23:16)
[2017-09-21] MEDS ORDERED: TYLENOL PR PRN (23:16)
[2017-09-21] MEDS ORDERED: PHENERGAN PR PRN (23:16)
[2017-09-21] MEDS ORDERED: TUCKS PAD TP PRN (23:16)
[2017-09-21] MEDS ORDERED: SODIUM CHLORIDE FLUSH SYRINGE 10 ML IV NR (23:16)
[2017-09-21] MEDS ORDERED: TYLENOL PO PRN (23:16)
[2017-09-22] MEDS: CLEOCIN 600 MG/50 mL 600 MG/50 ML BAG IV SCH ×2 (01:22→10:32)
[2017-09-22] MEDS ORDERED: BOOSTRIX IM ONE (06:00)
--- NOTE | 2017-09-22 08:48 | Progress Note ---
Assessment and Plan Patient doing well <12hrs postop; dressing dry and intact, VSSAF, H&H to be drawn @ 0924, curiel cath to BSB with adequate output. Plan discussed for today including increased activity as tolerated. breast feeding education provided. continue postop pathway. - Patient Problems (1) History of GBS (group B streptococcus) UTI, currently Current Visit: Yes Status: Acute (2) delivery delivered Current Visit: Yes Status: Acute Subjective - Subjective Date of service: 09/22/17 Principal diagnosis: postop day #1 s/p primary c/s Interval history: EDC Confirmation: 09/18/2017 Past History : 1 Past Medical History: Negative Past Medical History Past Surgical History: Negative Past Surgical History Family History Summary: Other family member - Has No Family History of Uterine Cancer - Entered On: 06/07 Other family member - Has No Family History of Stomach Cancer - Entered On: 06/07 Other family member - Has No Family History of Small Bowel Cancer - Entered On: 06/07/2017 Other family member - Has No Family History of Pancreatic Cancer - Entered On: Other family member - Has No Family History of Ovarvian Cancer - Entered On: Other family member - Has No Family History of Kidney/Urinary Tract Cancer - Entered On: 06/07/2017 Other family member - Has No Family History of DVT/PE on OCP - Entered On: 2016 Other family member - Has No Family History of Colon Cancer - Entered On: 2016 Other family member - Has No Family History of Breast Cancer - Entered On: 2016 Other family member - Has No Family History of Brain Cancer - Entered On: 2016 Other family member - Has No Family History of Biliary Tract Cancer - Entered On : 06/07/2017 Social History: Reviewed history and no changes required: Patient is single Smoking History: Patient is a former smoker. Past Medical History Surgery (Non-quilt stuffer): Negative Past Surgical History Abnormal PAP: negative Other Gynecologic Problems: negative Social Hx: Patient is single Smoking History: Patient is a former smoker. Infection History Hx of STD: chlamydia Personal hx. of genital herpes: no Partner hx. of genital herpes: no Varicella/Chicken Pox Status: Unknown TB Risk: no Genetic History Congenital Heart Defect: Mom: no Dad: no Karla Disease: Mom: no Dad: no Thalassemia Mom: no Dad: no Neural Tube Defect Mom: no Dad: no Down's Syndrome Mom: no Dad: no Jose Alberto-Sachs Mom: no Dad: no Sickle Cell Disease/Trait Mom: no Dad: no Hemophilia Mom: no Dad: no Muscular Dystrophy Mom: no Dad: no Cystic Fibrosis Mom: no Dad: no Cesar Chorea Mom: no Dad: no Mental Retardation Mom: no Dad: no Fragile X Mom: no Dad: no Other Genetic/Chromosomal Disorder Mom: no Dad: no Child w/other defect Mom: no Dad: no Enviromental Exposures Enviromental Exposures Reviewed Xray Exposure: no Medication, drug, or alcohol use since LMP: yes Chemical/Other Exposure: no Exposure to Cat Liter: no Hx of Parvovirus (Fifth Disease): no Occupational Exposure to Children: none Comments: tylenol Active Medications (reviewed today): ONDANSETRON 4 MG ORAL TBDP (ONDANSETRON) 1 tab po 1hrs prior to medication then q12 hrs as needed PLUS 27-1 MG TABS ( VIT-FE FUMARATE-FA) 1 po qd TYLENOL PRN () Current Allergies (reviewed today): * PCN (Critical) Patient reports: pain well controlled, no flatus, no nauseated [place]: doing well, bottle feeding (patient reports would like to breast feed but currently bottle feeding "because it's easier". asked to see patient.) Objective - Vital Signs Latest vital signs: Vital Signs Temp Pulse Resp BP BP Pulse Ox 09/22/17 05:00 98.2 F 69 18 118/76 99 09/21/17 22:55 99.7 F H 85 18 126/79 95 09/21/17 22:35 87 34 H 121/75 97 09/21/17 22:30 99.5 F 16 120/72 97 09/21/17 22:25 86 21 115/70 97 09/21/17 22:20 89 21 123/76 98 09/21/17 22:15 89 22 125/78 98 09/21/17 22:10 87 20 125/76 98 09/21/17 22:05 90 22 125/76 98 09/21/17 22:00 88 24 128/75 99 09/21/17 21:55 99 H 20 125/93 97 09/21/17 21:50 96 H 23 131/84 98 05/17 21:45 97 H 21 127/85 99 05/17 21:40 96 H 22 123/80 99 05/17 21:35 94 H 25 H 126/77 99 05/17 21:31 104 H 22 111/70 99 05/17 21:25 102 H 100 05/17 21:24 100.1 F H 05 19:55 95 H 100 0517 19:50 110 H 100 05/17 19:45 109 H 100 0517 19:40 110 H 100 05/17 19:35 88 100 0517 19:30 97 H 100 05 19:25 103 H 100 05/17 19:20 88 100 0517 19:18 93 H 107/67 09/21/17 19:15 97 H 100 0517 19:10 86 100 05 19:05 104 H 99 09/21/17 19:04 98.9 F 93 H 18 107/67 100 0517 19:03 103 H 114/61 05/17 19:00 86 100 05/17 18:55 87 100 05/17 18:50 77 100 05/17 18:47 91 H 97/57 05/17 18:45 83 100 05/17 18:40 79 100 1205/17 18:35 82 99 05/17 18:33 86 103/60 1205/17 18:30 70 100 05/17 18:25 77 100 1205/17 18:20 73 100 1205/17 18:18 80 106/72 1205/17 18:15 72 100 1205/17 18:10 69 100 1205/17 18:05 76 100 1205/17 18:02 74 115/65 1205/17 18:00 83 100 1205/17 17:55 69 100 1205/17 17:50 78 100 1205/17 17:49 68 119/66 1205/17 17:45 70 100 1205/17 17:40 71 100 1205/17 17:35 81 100 12/05/17 17:32 75 114/67 12/05/17 17:30 99.5 F 72 100 12/05/17 17:25 73 100 12/05/17 17:20 71 100 12/05/17 17:18 72 121/74 12/05/17 17:15 73 100 12/05/17 17:10 71 100 12/05/17 17:05 70 100 12/05/17 17:03 77 121/69 12/05/17 17:00 75 100 12/05/17 16:55 75 100 12/05/17 16:50 80 100 12/05/17 16:47 82 114/73 12/05/17 16:45 81 100 12/05/17 16:40 76 100 12/05/17 16:35 84 100 12/05/17 16:33 75 120/73 12/05/17 16:30 78 100 12/05/17 16:25 86 100 12/05/17 16:20 79 100 12/05/17 16:18 70 116/74 1205/17 16:15 74 100 12/05/17 16:10 68 100 12/05/17 16:05 79 100 12/05/17 16:04 80 117/73 12/05/17 16:00 78 100 12/05/17 15:55 79 100 12/05/17 15:50 77 100 12/05/17 15:48 74 109/66 12/05/17 15:45 81 100 12/05/17 15:40 88 100 12/05/17 15:35 91 H 100 12/05/17 15:32 78 118/75 12/05/17 15:30 99.3 F 72 100 12/05/17 15:25 93 H 100 12/05/17 15:20 74 100 12/05/17 15:18 72 115/75 12/05/17 15:15 70 100 12/05/17 15:10 73 100 12/05/17 15:05 73 100 12/05/17 15:03 75 105/73 12/05/17 15:00 76 100 12/05/17 14:55 81 100 12/05/17 14:50 102 H 99 12/05/17 14:48 90 104/57 12/05/17 14:45 83 99 12/05/17 14:40 90 99 12/05/17 14:35 81 99 09/21/17 14:33 87 102/60 09/21/17 14:30 85 99 09/21/17 14:25 89 100 09/21/17 14:20 88 100 09/21/17 14:19 85 109/62 09/21/17 14:15 89 98 09/21/17 14:10 89 87 09/21/17 14:05 93 H 100 09/21/17 14:04 82 100/58 09/21/17 14:00 85 100 09/21/17 13:55 84 100 09/21/17 13:50 85 100 09/21/17 13:47 93 H 99/66 09/21/17 13:45 82 99/54 100 09/21/17 13:43 89 104/57 09/21/17 13:41 78 100/56 09/21/17 13:40 86 99/53 100 09/21/17 13:36 146 H 195/164 09/21/17 13:35 82 100 09/21/17 13:33 82 180/140 09/21/17 13:30 81 97 09/21/17 13:29 77 105/68 09/21/17 13:27 68 105/66 09/21/17 13:25 76 103/63 100 09/21/17 13:23 76 110/66 09/21/17 13:21 64 119/73 09/21/17 13:20 89 76 L 09/21/17 13:19 88 126/76 09/21/17 13:17 91 H 116/68 09/21/17 13:15 86 115/73 99 09/21/17 13:13 94 H 127/81 09/21/17 13:11 90 120/77 09/21/17 13:10 99 H 99 09/21/17 12:42 102 H 129/79 09/21/17 12:38 102 H 18 129/79 09/21/17 11:24 79 105/65 09/21/17 11:18 97.8 F 18 Intake and Output 09/21/17 09/22/17 09/22/17 23:59 07:59 15:59 Intake Total 2873.016 120 Output Total 250 300 Balance 2623.016 -180 Intake: IV 2873.016 Lactated Ringers 1,000 ml 964.583 @ 125 mls/hr IV DIRECT [facility] Rx#:[id number] PITOCin/NS 30 UNIT/500ML 8.433 30 units In 500 ml @ 2 MILLIUNITS/MIN 2 mls/hr IV TITR [facility] Rx#:[id number] Oral 120 Output: Urine 250 300 Indwelling Catheter 100 300 Other: Total, Intake Amount 120 Total, Output Amount 100 300 - Exam Breasts: Present: normal Cardiovascular: Present: Regular rate Lungs: Present: Clear to auscultation, Normal air movement Abdomen: Present: normal appearance, soft Vulva: both: normal Uterus: Present: normal, firm, fundal height at umbilicus Extremities: Present: normal Incision: Present: normal, dry, dressed - Labs Labs: Abnormal lab results 09/21/17 Range/Units 10:45 WBC 16.5 H (4.5-11.0) K/mm3 MCH 27 L (28-32) pg
[2017-09-22 10:04] LABS: Hemoglobin 10.4 gm/dl (10.1-14.3)
[2017-09-22 10:06] LABS: Hematocrit 31.6 % (30.3-42.9)
[2017-09-22] MEDS ORDERED: Fluarix Quad 2017-2018(36 MOS+ IM ONE (12:00)
--- NOTE | 2017-09-22 14:30 | Progress Note ---
Subjective Date of service: 09/22/17 Principal diagnosis: postop day #1 s/p primary c/s Interval history: 1st POD after Patient is in the bed, comfortable. Pain is well controlled with pain meds. Ambulated well. No residual neurological deficit. No anesthesia complications Objective - Constitutional Vitals: Vital Signs - 12hr 09/22/17 09/22/17 05:00 09:00 Temperature 98.2 F 97.1 F L Pulse Rate 69 77 Respiratory 18 18 Rate Blood Pressure 118/76 100/67 [Left] O2 Sat by Pulse 99 Oximetry - Labs CBC & Chem 7: 09/22/17 09:22
[2017-09-22] MEDS: PERCOCET 5/325 PO PRN ×2 (15:26→23:33)
[2017-09-22] MEDS: MOTRIN PO PRN (18:35)
[2017-09-22] MEDS: MYLICON PO PRN (23:32)
[2017-09-23] MEDS: MOTRIN PO PRN ×3 (03:41→18:25)
[2017-09-23] MEDS: MYLICON PO PRN (06:51)
[2017-09-23] MEDS: PERCOCET 5/325 PO PRN ×4 (06:52→22:24)
--- NOTE | 2017-09-23 07:47 | Progress Note ---
Assessment and Plan - Patient Problems (1) delivery delivered Onset Date: ~09/21/17 Current Visit: Yes Status: Acute Plan to address problem: pt w/o complaint VSS FF below umb Lochia small Incision D&I steri strips bloody on left side will continue to eval and chg if needed. H&H 08/17 drop r/t blood loss from surgery Pt is asymptomatic Doing well s/p c/s P: continue pathway Advance diet and activity as tolerated. Subjective - Subjective Date of service: 09/23/17 (pt request d/c tomorrow) Principal diagnosis: postop day #2 s/p primary c/s Patient reports: appetite normal, voiding normally, pain well controlled, ambulating normally [place]: doing well Objective - Vital Signs Latest vital signs: Vital Signs Temp Pulse Resp BP 09/23/17 06:52 18 09/23/17 04:41 20 09/23/17 00:33 16 09/23/17 00:00 98.6 F 69 18 117/68 09/22/17 23:33 16 09/22/17 16:30 98.2 F 84 20 117/71 09/22/17 09:00 97.1 F L 77 18 100/67 Intake and Output 09/22/17 09/23/17 09/23/17 22:59 06:59 14:59 Intake Total 240 300 Balance 240 300 Intake: Oral 240 Intake, Free Water 300 Other: Total, Intake Amount 240 # Voids Void 1 - Exam Breasts: Present: normal Cardiovascular: Present: Regular rate Lungs: Present: Normal air movement Abdomen: Present: normal appearance, soft, normal bowel sounds Uterus: Present: normal, firm, fundal height below umbilicus Extremities: Present: normal Deep Tendon Reflex Grade: Normal +2 Incision: Present: normal, dry, intact, dressed (removed)
[2017-09-23] MEDS ORDERED: PERCOCET 5/325 PO PRN (11:14)
[2017-09-23] MEDS ORDERED: PERCOCET 5/325 ONE (11:19)
[2017-09-23] MEDS: MILK OF MAGNESIA PO PRN (11:23)
[2017-09-24 00:46] VITALS: BP 114/68
[2017-09-24] MEDS: PERCOCET 5/325 PO PRN ×2 (02:48→08:44)
[2017-09-24] MEDS: MILK OF MAGNESIA PO PRN (03:50)
[2017-09-24] MEDS: MOTRIN PO PRN (08:44)
--- NOTE | 2017-09-24 08:46 | Progress Note ---
Assessment and Plan patient doing well, c/o normal abdominal discomfort following c/s. Lochia scant , fundus firm, VSSAF, H&H stable. Plan for d/c home today w/ 1 week f/u in office. - Patient Problems (1) History of GBS (group B streptococcus) UTI, currently Current Visit: Yes Status: Acute (2) delivery delivered Onset Date: ~09/21/17 Current Visit: Yes Status: Acute Subjective - Subjective Date of service: 09/24/17 Principal diagnosis: postop day #3 s/p primary c/s Interval history: EDC Confirmation: 09/18/2017 Past History : 1 Past Medical History: Negative Past Medical History Past Surgical History: Negative Past Surgical History Family History Summary: Other family member - Has No Family History of Uterine Cancer - Entered On: 06/07 Other family member - Has No Family History of Stomach Cancer - Entered On: 06/07 Other family member - Has No Family History of Small Bowel Cancer - Entered On: 06/07/2017 Other family member - Has No Family History of Pancreatic Cancer - Entered On: Other family member - Has No Family History of Ovarvian Cancer - Entered On: Other family member - Has No Family History of Kidney/Urinary Tract Cancer - Entered On: 06/07/2017 Other family member - Has No Family History of DVT/PE on OCP - Entered On: 2016 Other family member - Has No Family History of Colon Cancer - Entered On: 2016 Other family member - Has No Family History of Breast Cancer - Entered On: 2016 Other family member - Has No Family History of Brain Cancer - Entered On: 2016 Other family member - Has No Family History of Biliary Tract Cancer - Entered On : 06/07/2017 Social History: Reviewed history and no changes required: Patient is single Smoking History: Patient is a former smoker. Past Medical History Surgery (Non-kiln stoker): Negative Past Surgical History Abnormal PAP: negative Other Gynecologic Problems: negative Social Hx: Patient is single Smoking History: Patient is a former smoker. Infection History Hx of STD: chlamydia Personal hx. of genital herpes: no Partner hx. of genital herpes: no Varicella/Chicken Pox Status: Unknown TB Risk: no Genetic History Congenital Heart Defect: Mom: no Dad: no Karla Disease: Mom: no Dad: no Thalassemia Mom: no Dad: no Neural Tube Defect Mom: no Dad: no Down's Syndrome Mom: no Dad: no Jose Alberto-Sachs Mom: no Dad: no Sickle Cell Disease/Trait Mom: no Dad: no Hemophilia Mom: no Dad: no Muscular Dystrophy Mom: no Dad: no Cystic Fibrosis Mom: no Dad: no [place] Chorea Mom: no Dad: no Mental Retardation Mom: no Dad: no Fragile X Mom: no Dad: no Other Genetic/Chromosomal Disorder Mom: no Dad: no Child w/other defect Mom: no Dad: no Enviromental Exposures Enviromental Exposures Reviewed Xray Exposure: no Medication, drug, or alcohol use since LMP: yes Chemical/Other Exposure: no Exposure to Cat Liter: no Hx of Parvovirus (Fifth Disease): no Occupational Exposure to Children: none Comments: tylenol Active Medications (reviewed today): ONDANSETRON 4 MG ORAL TBDP (ONDANSETRON) 1 tab po 1hrs prior to medication then q12 hrs as needed PLUS 27-1 MG TABS ( VIT-FE FUMARATE-FA) 1 po qd TYLENOL PRN () Current Allergies (reviewed today): * PCN (Critical) Patient reports: appetite normal, voiding normally, pain well controlled, flatus , ambulating normally, no dizzy ambulation, no nauseated [place]: doing well, bottle feeding Objective - Vital Signs Latest vital signs: Vital Signs Temp Pulse Resp BP 09/24/17 03:48 20 09/24/17 02:48 16 09/24/17 00:00 98.6 F 69 18 114/68 09/23/17 23:24 18 09/23/17 22:24 16 09/23/17 19:31 18 09/23/17 19:25 18 09/23/17 17:05 98.2 F 76 18 121/76 09/23/17 11:25 20 09/23/17 11:22 20 09/23/17 09:08 98.2 F 75 18 116/76 Intake and Output 09/23/17 09/24/17 09/24/17 23:59 07:59 15:59 Intake Total 360 Balance 360 Intake: Oral 360 Other: Total, Intake Amount 360 # Voids Void 1 - Exam Breasts: Present: normal Cardiovascular: Present: Regular rate Lungs: Present: Clear to auscultation, Normal air movement Abdomen: Present: normal appearance, soft Vulva: both: normal Uterus: Present: normal, firm, fundal height at umbilicus Extremities: Present: normal Deep Tendon Reflex Grade: Normal +2 Incision: Present: normal, dry, intact
--- NOTE | 2017-09-24 08:51 | Discharge Summary ---
Providers - Providers Date of Admission: 09/21/17 10:36 Date of discharge: 09/24/17 Attending physician: PHOEBE JOHN 09/21/17 23:16 Consult to Diabetes Trainer [CONS] Routine Reason For Exam: 09/22/17 04:43 Consult to Case Management [CONS] Routine Services Needed at Discharge: Floorleader Notified:: no Phone number called:: no Was contact made?: No Additional Physician Instructions: patient and has positive drug screen for marijuana Primary care physician: PHOEBE JOHN Hospitalization Reason for admission: active labor Delivery: Procedure: primary low transverse Episiotomy: none Laceration: none Incision: normal, dry, intact Other procedures: none complications: none Discharge diagnosis: IUP at term delivered baby: male Hospital course: uncomplicated c/s delivery Condition at discharge: Good Disposition: DC-01 TO HOME OR SELFCARE - Discharge Diagnoses (1) History of GBS (group B streptococcus) UTI, currently Status: Acute (2) delivery delivered Status: Acute Plan - Discharge Medications Prescriptions: Ibuprofen [Motrin 800 MG tab] 800 mg PO TID PRN #30 tablet PRN Reason: Pain Lidocain2.5%/Prilocai2.5% [Emla] 5 gm TP ONCE #1 tube oxyCODONE /ACETAMINOPHEN [Percocet 5/325 mg] 1 - 2 tab PO Q6HR PRN #30 tablet PRN Reason: Pain - Provider Discharge Summary Activity: routine, no sex for 6 weeks, no heavy lifting 4 weeks, no strenuous exercise Diet: routine Instructions: routine Additional instructions: [] Smoking cessation referral if applicable(refer to patient education folder for contact #) [] Refer to [facility] Booklet Call your doctor immediately for: * Fever > 100.5 * Heavy vaginal bleeding ( >1 pad per hour) * Severe persistent headache * Shortness of breath * Reddened, hot, painful area to leg or breast * Drainage or odor from incision. * Keep incision clean and dry at all times and follow doctor's instructions regarding bathing/showering - Follow up plan Follow up: PHOEBE JOHN MD [Primary Care Provider] - 7 Days (Congratulations! Please call [phone] to schedule your 1 week appointment for an incision check and your son's circumcision. Bring EMLA cream to your son's appointment and await further instructions. Your prescriptons have been electionically sent to the [facility] in [place].)
== END 2017-09-24 13:00 | disposition home or self-care (01) | DRG 765 ==
LOC: TRG 10:14 → LD 10:36 → OB 23:21
PROVIDERS: ADMIT Obstetrics & Gynecology; ATTEND Obstetrics & Gynecology
PROC: 10D00Z1 Extraction of Products of Conception, Low, Open Approach (ICD-10-PCS; principal; 2017-09-21)
PROC: 3E0234Z Introduction of Serum, Toxoid and Vaccine into Muscle, Percutaneous Approach (ICD-10-PCS; 2017-09-22)
DX: O77.0 Labor and delivery complicated by meconium in amniotic fluid (principal); O99.324 Drug use complicating childbirth; O62.0 Primary inadequate contractions; O99.824 Streptococcus B carrier state complicating childbirth; F12.20 Cannabis dependence, uncomplicated; Z3A.40 40 weeks gestation of pregnancy; Z37.0 Single live birth; Z23 Encounter for immunization; Z87.891 Personal history of nicotine dependence; Z88.0 Allergy status to penicillin
CPT/HCPCS: 36415; 80307; 85014; 85018; 85027; 86592; 86850; 86900; 86901; 90686; 99211; C1765; G0463; J1580; J1885; J2175; J2250; J2270; J2405; J2590; J2765; J3010; J7120; J7121